=== PATIENT | male | born 1980 | race Hispanic/Latino ===

== ENCOUNTER 2021-05-24 13:06 | Outpatient (CLI) | payer BC | END 2021-05-24 13:07 | disposition home or self-care (01) | LOC: BICRAD 13:06 | PROVIDERS: ATTEND Family Medicine | DX: Z11.1 Encounter for screening for respiratory tuberculosis (principal) | CPT/HCPCS: 71046 ==

== ENCOUNTER 2022-03-24 12:18 | Outpatient (CLI) | payer BC | END 2022-03-24 12:19 | disposition home or self-care (01) | LOC: RAD 12:18 | PROVIDERS: ATTEND Family Medicine | DX: S93.432A Sprain of tibiofibular ligament of left ankle, initial encounter (principal) ==

== ENCOUNTER 2024-07-04 07:32 | Outpatient (CLI) | payer BC | END 2024-07-04 07:33 | disposition home or self-care (01) | LOC: BICULT 07:32 | PROVIDERS: ATTEND Family Medicine | DX: R74.8 Abnormal levels of other serum enzymes (principal); R16.2 Hepatomegaly with splenomegaly, not elsewhere classified; N13.30 Unspecified hydronephrosis | CPT/HCPCS: 76700 ==